=== PATIENT | female | born 1975 | race Caucasian/White ===

== ENCOUNTER 2021-12-17 06:25 | Day surgery (SDC) | payer BC ==
[2021-12-17] MEDS ORDERED: Lactated Ringers 1,000 ML IV SCH (06:45)
[2021-12-17] MEDS ORDERED: Metoclopramide 10 MG/2 ML SDV IVPUSH PRN (07:14)
[2021-12-17] MEDS ORDERED: Ondansetron 4 MG/2 ML SDV IVPUSH PRN (07:14)
[2021-12-17] MEDS ORDERED: fentaNYL 50 MCG/ML SDV IVPUSH PRN (07:14)
[2021-12-17] MEDS ORDERED: HYDROmorphone 1 MG/ML Syringe IVPUSH PRN (07:14)
[2021-12-17] MEDS ORDERED: Albuterol 0.083% 2.5 MG/3 ML Neb Soln NEB PRN (07:14)
[2021-12-17] MEDS ORDERED: Morphine 2 MG/ML SYRINGE IVPUSH PRN (07:14)
[2021-12-17] MEDS ORDERED: Naloxone 0.4 MG/ML SDV IVPUSH PRN (07:14)
[2021-12-17] MEDS ORDERED: Propofol 200 MG/20 ML SDV ONE (07:31)
[2021-12-17] MEDS ORDERED: fentaNYL 100 MCG/2 ML SDV ONE (07:32)
[2021-12-17] MEDS ORDERED: Lidocaine 2% 11 ML Jelly Filled Syringe ONE (07:44)
[2021-12-17] MEDS ORDERED: Ferric Subsulfate Topical Soln 8 GM (8 ML) Bottle ONE (07:46)
[2021-12-17] MEDS ORDERED: Iodine/Potassium Iodide 5% Solution 14 ML Bottle ONE (07:46)
[2021-12-17] MEDS ORDERED: Lidocaine 1% with EPINEPHrine 1:100,000 50 ML MDV ONE (07:47)
[2021-12-17] MEDS ORDERED: Ondansetron 4 MG/2 ML SDV ONE (08:36)
[2021-12-17] MEDS ORDERED: Rocuronium Bromide 50 MG/5 ML Syringe ONE (08:36)
[2021-12-17] MEDS ORDERED: Glycopyrrolate 0.2 MG/ML SDV ONE (08:36)
[2021-12-17] MEDS ORDERED: Ketorolac 30 MG/ML SDV ONE (08:36)
[2021-12-17] MEDS ORDERED: Sugammadex Sodium 200 MG/2 ML VIAL ONE (08:36)
[2021-12-17] MEDS ORDERED: Succinylcholine/Sod PF 100 MG/5 ML SYRINGE IV ONE (08:36)
[2021-12-17] MEDS ORDERED: Dexamethasone 4 MG/ML 5 ML MDV ONE (08:36)
== END 2021-12-17 09:45 | disposition home or self-care (01) ==
LOC: MW.SDS 06:25
PROVIDERS: ATTEND Obstetrics & Gynecology
DX: R87.612 Low grade squamous intraepithelial lesion on cytologic smear of cervix (LGSIL) (principal); R87.820 Cervical low risk human papillomavirus (HPV) DNA test positive; R87.811 Vaginal high risk human papillomavirus (HPV) DNA test positive; I10 Essential (primary) hypertension; F41.9 Anxiety disorder, unspecified; F32.A Depression, unspecified; E66.9 Obesity, unspecified; Z68.41 Body mass index [BMI] 40.0-44.9, adult; Z79.899 Other long term (current) drug therapy; Z88.0 Allergy status to penicillin; Z98.890 Other specified postprocedural states; Z87.891 Personal history of nicotine dependence
CPT/HCPCS: 57522; 81025; A9270; J0131; J1100; J1885; J2405; J2704; J3010; J3490; J7120; 00940; J0330

== ENCOUNTER 2022-05-06 09:44 | Day surgery (SDC) | payer BC ==
[2022-05-04 10:11] LABS: CARBON DIOXIDE,CO2 27.8 mmol/L (21.0-32.0); POTASSIUM,K 4.3 mmol/L (3.5-5.1)
[~2022-05-06 09:44] MED LIST: Lactated Ringers 1,000 ML IV SCH; Sodium Chloride 0.9% 10 ML Syringe FLUSH PRN; Sodium Chloride 0.9% 2.5 ML Syringe FLUSH PRN; Sodium Chloride 0.9% 20 ML SDV IV PRN; ceFAZolin 1 GM in Premix Bag 1 BAG IV ONE; fentaNYL 100 MCG/2 ML SDV ONE
[2022-05-06] MEDS ORDERED: Morphine 2 MG/ML SYRINGE IVPUSH PRN (10:31)
[2022-05-06] MEDS ORDERED: fentaNYL 50 MCG/ML SDV IVPUSH PRN (10:31)
[2022-05-06] MEDS ORDERED: Ondansetron 4 MG/2 ML SDV IVPUSH PRN ×2 (10:31→13:51)
[2022-05-06] MEDS ORDERED: droPERidol 5 MG/2 ML SDV IVPUSH PRN (10:31)
[2022-05-06] MEDS ORDERED: Metoclopramide 10 MG/2 ML SDV IVPUSH PRN (10:31)
[2022-05-06] MEDS ORDERED: Albuterol 0.083% 2.5 MG/3 ML Neb Soln NEB PRN (10:31)
[2022-05-06] MEDS ORDERED: Naloxone 0.4 MG/ML SDV IVPUSH PRN (10:31)
[2022-05-06] MEDS ORDERED: Propofol 200 MG/20 ML SDV ONE ×2 (11:18→13:09)
[2022-05-06] MEDS ORDERED: fentaNYL 100 MCG/2 ML SDV ONE (11:18)
[2022-05-06] MEDS ORDERED: Magnesium Sulfate (4.06 MEQ/ML) 5 GM/10 ML SDV ONE (12:38)
[2022-05-06] MEDS ORDERED: Dexamethasone 4 MG/ML 5 ML MDV ONE (12:38)
[2022-05-06] MEDS ORDERED: ceFAZolin 2 GM Vial ONE (12:43)
[2022-05-06] MEDS ORDERED: ePHEDrine 50 MG/ML SDV ONE (12:58)
[2022-05-06] MEDS ORDERED: Sugammadex Sodium 200 MG/2 ML VIAL ONE (12:58)
[2022-05-06] MEDS ORDERED: Ketorolac 30 MG/ML SDV ONE (12:58)
[2022-05-06] MEDS ORDERED: Ondansetron 4 MG/2 ML SDV ONE (12:58)
[2022-05-06] MEDS ORDERED: Fluorescein 5 ML Vial ONE (13:24)
[2022-05-06] MEDS ORDERED: Acetaminophen/oxyCODONE 325-5 MG Tab PO PRN (13:51)
[2022-05-06] MEDS ORDERED: Ketorolac 30 MG/ML SDV IVPUSH ONE (13:51)
[2022-05-06] MEDS ORDERED: Promethazine 25 MG/ML SDV IM PRN (13:51)
[2022-05-06] MEDS: HYDROmorphone 1 MG/ML Syringe IVPUSH PRN ×2 (14:10→14:23)
[2022-05-06] MEDS: Morphine 4 MG/ML Syringe IVPUSH PRN ×3 (15:18→20:00)
[2022-05-06] MEDS: Acetaminophen/oxyCODONE 325-5 MG Tab PO PRN (16:09)
[2022-05-06] MEDS ORDERED: Ketorolac 30 MG/ML SDV IVPUSH PRN (19:00)
[2022-05-07] MEDS: Acetaminophen/oxyCODONE 325-5 MG Tab PO PRN ×2 (02:04→09:14)
[2022-05-07 07:09] LABS: CARBON DIOXIDE,CO2 27.9 mmol/L (21.0-32.0); POTASSIUM,K 4.6 mmol/L (3.5-5.1)
== END 2022-05-07 11:06 | disposition home or self-care (01) ==
LOC: MW.SDS 09:44 → MW.MS 15:09 → MW.SDS 05-07 11:06
PROVIDERS: ATTEND Obstetrics & Gynecology
DX: N87.0 Mild cervical dysplasia (principal); D25.9 Leiomyoma of uterus, unspecified; D27.9 Benign neoplasm of unspecified ovary; F41.9 Anxiety disorder, unspecified; F32.A Depression, unspecified; E66.01 Morbid (severe) obesity due to excess calories; Z68.41 Body mass index [BMI] 40.0-44.9, adult; Z79.899 Other long term (current) drug therapy; Z88.0 Allergy status to penicillin; Z87.891 Personal history of nicotine dependence
CPT/HCPCS: 36415; 58262; 80048; 84703; 85025; 85027; 86850; 86900; 86901; A9270; J0131; J0690; J1100; J1170; J1885; J2270; J2550; J2704; J3010; J3475; J3490; J7030; J7120; 00944; J2405